=== PATIENT | female | born 2000 | race Caucasian/White ===

== ENCOUNTER 2024-07-14 11:40 | Emergency (ER) | payer OTHER ==
[~2024-07-14] VITALS: Ht 162.6 cm; Wt 55.0 kg
[~2024-07-14 11:40] MED LIST: KEPP500 PO; LAM25 PO
[2024-07-14 11:47] VITALS: TEMP 98.4; O2SAT 100
[2024-07-14 13:00] VITALS: BP 102/73; PULSE 77; RESP 20; O2SAT 100
== END 2024-07-14 13:12 | disposition home or self-care (01) ==
LOC: ER 11:40
DX: G40.909 Epilepsy, unspecified, not intractable, without status epilepticus (principal); Z79.899 Other long term (current) drug therapy
CPT/HCPCS: 99283